=== PATIENT | female | born 2000 | race Caucasian/White ===

== ENCOUNTER → 2022-11-10 | Outpatient (CLI) | payer OTHER | END | disposition home or self-care (01) | LOC: LAB 09:45 → LAB SHORT 09:45 | DX: M79.18 Myalgia, other site (principal); R50.9 Fever, unspecified; R19.7 Diarrhea, unspecified; R11.2 Nausea with vomiting, unspecified; R61 Generalized hyperhidrosis | CPT/HCPCS: 87086 ==

== ENCOUNTER 2023-07-03 17:09 | Emergency (ER) | payer OTHER ==
[~2023-07-03] VITALS: Ht 162.6 cm; Wt 72.6 kg
[2023-07-03 17:21] VITALS: BP 164/94
== END 2023-07-03 19:22 | disposition home or self-care (01) ==
LOC: ER 17:09
DX: M25.561 Pain in right knee (principal); M25.562 Pain in left knee; F17.290 Nicotine dependence, other tobacco product, uncomplicated
CPT/HCPCS: 93971; 99284-25

== ENCOUNTER → 2024-02-22 | Outpatient (CLI) | payer OTHER | LOC: LAB SHORT 18:40 → LAB 18:40 | DX: Z32.02 Encounter for pregnancy test, result negative (principal) | CPT/HCPCS: 84702 ==

== ENCOUNTER → 2024-04-19 | Outpatient (CLI) | payer OTHER | LOC: LAB 08:45 → LAB SHORT 08:45 | PROVIDERS: Physician Assistant | DX: Z01.419 Encounter for gynecological examination (general) (routine) without abnormal findings (principal) | CPT/HCPCS: G0123 ==

== ENCOUNTER → 2024-07-27 | Outpatient (CLI) | payer OTHER ==
[~2024-07-27] MED LIST: BIRTH CONTROL PILL; TOPI50 PO; VRAYLAR3 MG PO
[2024-07-27 13:31] LABS: Source, Urine Clean Catch
[2024-07-27 14:42] LABS: Appearance, Urine Clear (Clear); Bilirubin, Urine Neg (Neg); Blood, Urine 2+ (Neg); Color, Urine Yellow (P-Yellow); Glucose Qualitative, Urine Neg (Neg); Ketones, Urine Neg (Neg); Leukocyte Esterase, Urine Neg (Neg); Nitrite, Urine Neg (Neg); Protein, Urine Neg (Neg); Urobilinogen, Urine NORM (Normal)
[2024-07-27 14:55] LABS: Bacteria Few /hpf; Red Blood Cells, Urine 0-2 /hpf (0-2); Squamous Epithelial Cells Rare /hpf (Few); White Blood Cells, Urine 0-2 /hpf (0-5)
== END ==
LOC: LAB 13:15 → LAB SHORT 13:15
PROVIDERS: Obstetrics & Gynecology
DX: Z01.818 Encounter for other preprocedural examination (principal)
CPT/HCPCS: 81001

== ENCOUNTER 2024-08-10 11:07 | Day surgery (SDC) | payer OTHER ==
[~2024-08-10] VITALS: Ht 162.6 cm; Wt 59.4 kg
[2024-08-10] VITALS (9 sets, daily range): BP systolic 120–138; BP diastolic 75–94
[~2024-08-10 11:07] MED LIST changes: +Lactated Ringer's 1,000 ML IV SCH
[2024-08-10] MEDS ORDERED: Bupivacaine 0.5% HCl 5 MG/ML 30MLVIAL ONE (11:33)
[2024-08-10] MEDS ORDERED: propofoL 20 ML IV ONE (11:51)
[2024-08-10] MEDS ORDERED: FentaNYL Citrate 50 MCG/ML 2 ML Injection ONE (11:52)
[2024-08-10] MEDS ORDERED: Lidocaine HCl 2% 20 ML MDV ONE (11:54)
[2024-08-10] MEDS ORDERED: Midazolam HCl 1MG / ML 2ML Vial IV ONE (12:20)
[2024-08-10] MEDS ORDERED: Midazolam HCl 1MG / ML 2ML Vial ONE (12:22)
[2024-08-10] MEDS ORDERED: Ketorolac Tromethamine 30mg Vial ONE (12:42)
[2024-08-10] MEDS ORDERED: Ondansetron HCl 2 MG / ML 2ML Vial ONE (12:42)
[2024-08-10] MEDS ORDERED: Dexamethasone Sod Phos 10 MG/ML 1ML VIAL ONE (12:42)
[2024-08-10] MEDS ORDERED: Rocuronium Bromide 10 MG/ML 5ML Injection IV ONE (12:42)
[2024-08-10] MEDS ORDERED: Sugammadex Sodium 200 MG/2ML SDV (100 MG/ML) ONE (12:50)
[2024-08-10] MEDS ORDERED: OxyCODONE 5 mg/Acetamin 325 mg TABLET PO PRN (13:40)
--- NOTE | 2024-08-10 14:20 | NUR ---
PT SITTING UP IN CART TOLERATING SIPS OF APPLE JUICE. PT STATES SHE'S HAVING PERIOD-TYPE CRAMPING TO ABDOMEN, BUT THAT IT'S TOLERABLE AT THIS TIME. VSS, ON RA. ABD LAP SITES X3 C/D/I. NO VISIBLE SIGNS OF DISTRESS NOTED.
--- NOTE | 2024-08-10 14:49 | NUR ---
PT GETTING DRESSED AT THIS TIME W/ HELP FROM MOM. PT STATES SHE'S READY TO TRY TO VOID SO SHE CAN GO HOME. PT TOLERATING APPLE JUICE W/O NAUSEA. VSS, ON RA, NO VISIBLE SIGNS OF DISTRESS NOTED.
--- NOTE | 2024-08-10 15:04 | NUR ---
PT AMBULATED TO BATHROOM & WAS ABLE TO VOID W/O DIFFICULTY. PT HAVING SEROSANGUINOUS VAGINAL DRAINAGE UPON STANDING UP TO CHANGE. PT INFORMED THAT THIS DRAINAGE IS NORMAL & THAT PT WILL HAVE SOME BLOODY VAGINAL DRAINAGE FOR UP TO 7 DAYS POST-OP. PT REASSURED THAT THIS IS COMMON. PT RELAXES & VERBALIZES UNDERSTANDING. PT DRESSED W/ HELP FROM MOM. PT PROVIDED W/ EXTRA PERIPADS & MESH UNDERWEAR TO GO HOME W/. PT HAS ALL BELONGINGS, INCLUDING CELL PHONE & PURSE. PT STATES ABDOMINAL CRAMPING TOLERABLE, CONTINUES TO DENY NAUSEA. VSS, ON RA. PT WHEELED TO PRIVATE VEHICLE, STEADY GAIT NOTED UPON TRANSFER FROM TO VEHICLE. NO VISIBLE SIGNS OF DISTRESS NOTED.
== END 2024-08-10 23:00 | disposition home or self-care (01) ==
LOC: ORSCMMR 11:07 → ORD 12:30 → ORSCMMR 23:00
PROVIDERS: Obstetrics & Gynecology
PROC: 0UT74ZZ Resection of Bilateral Fallopian Tubes, Percutaneous Endoscopic Approach (ICD-10-PCS; principal; 2024-08-10 12:30)
DX: Z30.2 Encounter for sterilization (principal); F17.290 Nicotine dependence, other tobacco product, uncomplicated; F31.9 Bipolar disorder, unspecified; F41.9 Anxiety disorder, unspecified; Z79.899 Other long term (current) drug therapy
CPT/HCPCS: 88302; J1100; J1885; J2250; J2405; J2704; J3010; J7120

== ENCOUNTER → 2025-04-09 | Outpatient (CLI) | payer OTHER ==
[~2025-04-09] MED LIST changes: -Lactated Ringer's 1,000 ML IV SCH; +NAPR500 PO; +OCUFLOX5 M9 LEFTEAR
== END | disposition home or self-care (01) ==
LOC: LAB SHORT 10:07 → LAB 10:07
DX: N39.0 Urinary tract infection, site not specified (principal)
CPT/HCPCS: 87086

== ENCOUNTER → 2025-04-30 | Outpatient (CLI) | payer OTHER ==
[2025-04-30 15:17] LABS: Bacterial Vaginosis PCR Negative (NEGATIVE); Candida glabrata-krusei, PCR NOT DETECTED (NOT DETECT)
[2025-04-30 15:18] LABS: Candida Group, PCR DETECTED (NOT DETECT)
== END | disposition home or self-care (01) ==
LOC: LAB SHORT 11:14 → LAB 11:14
PROVIDERS: Obstetrics & Gynecology
DX: N76.0 Acute vaginitis (principal)
CPT/HCPCS: 81515